=== PATIENT | female | born 1975 | race Two or more races ===

== ENCOUNTER 2019-05-01 16:36 | Inpatient (IN) | payer OTHER ==
[~2019-05-01] VITALS: Ht 160 cm; Wt 68.0 kg
--- NOTE | 2019-05-01 16:41 | NUR ---
PT BIB [facility] WITH A C/O ANXIETY / PANIC ATTACK. PT WAS CLEANING A HOUSE AND THE HOMEOWNER LIGHT A CANDLE AND STARTED SMOKING MARIJUANA. PT WAS HYPERVENTILATING UPON EMS ARRIVAL AND VOMITTED X1. PT REC'D ZOFRAN, NITRO X 1 AND ASPIRIN IN THE FIELD. RESCUE AMBUANCE ARRIVED ON SCENE AND REPEAT EKG WAS DONE AND PT WAS TRANSPORTED TO THE ER. PT HAS A 20G IV IN LT HAND. PT IS AA&O X 4.
[2019-05-01 17:02] LABS: BASOPHILS # (AUTO) 0.1 /CMM (0.0-0.2); EOSINOPHILS % (AUTO) 0.7 % (0.0-6.0); HEMATOCRIT 41 % (33-45); HEMOGLOBIN 13.6 g/dL (11.5-14.8); LYMPHOCYTES # (AUTO) 2.6 /CMM (0.8-4.8); MEAN CORPUSCULAR HGB CONC 33 g/dl (31.0-36.0); MEAN CORPUSCULAR VOLUME 92 fL (82-100); MONOCYTES # (AUTO) 0.6 /CMM (0.1-1.30); NEUTROPHILS # (AUTO) 6.3 /CMM (1.8-8.9); NEUTROPHILS % (AUTO) 65.3 % (43.0-81.0); PLATELET COUNT (AUTO) 231 /CMM (150-450); RED BLOOD CELL COUNT(AUTO) 4.43 MIL/uL (4.0-5.2); WHITE BLOOD COUNT (AUTO) 9.7 K/uL (4.3-11.0)
[2019-05-01 17:09] LABS: CALCIUM, SERUM 8.9 mg/dL (8.5-10.1); CARBON DIOXIDE 24 mmol/L (21-32); CHLORIDE 103 mmol/L (98-107); CREATININE 0.8 mg/dL (0.6-1.3); GLUCOSE 138 mg/dL (74-106); SODIUM SERUM 141 mmol/L (136-145); UREA NITROGEN, BLOOD 23 mg/dL (7-18)
[2019-05-01 17:11] LABS: ABG BASE EXCESS -2.5 mmol/L; ABG OXYGEN SATURATION 98.4 % (92.0-98.5); ABG PCO2 19.3 mmHg (35.0-45.0); ABG PH 7.567 (7.350-7.450); ABG PO2 146.9 mmHg (75.0-100.0); COHb 0.2 % (0.5-1.5); MetHb 0.4 % (0.0-1.5); O2Hb 97.8 % (94.0-97.0); SITE, ABG Right Radial; VENT MODE, BG RA
[2019-05-01 17:15] LABS: ALANINE AMINOTRANSFERASE 21 U/L (12-78); ALBUMIN 3.7 g/dL (3.4-5.0); ALKALINE PHOSPHATASE 127 U/L (46-116); ASPARTATE AMINOTRANSFERASE 18 U/L (15-37); BILIRUBIN,DIRECT 0.1 mg/dL (0.0-0.2); BILIRUBIN,TOTAL 0.3 mg/dL (0.2-1.0); LIPASE 159 U/L (73-393); TOTAL PROTEIN, SERUM 7.6 g/dL (6.4-8.2)
--- NOTE | 2019-05-01 18:00 | NUR ---
PT IS RESTING COMFORTABLY WITH NO S/S OF PAIN OR DISTRESS. VSS.
[2019-05-01] MEDS ORDERED: POTASSIUM CHLORIDE 20 MEQ TAB.PRT.SR PO ONE ×2 (18:30→18:54)
[2019-05-01] MEDS ORDERED: ONDANSETRON HCL/PF 4 MG/2 ML VIAL IV ONE (18:30)
[2019-05-01] MEDS ORDERED: IV NS 0.9% 1,000 ML BAG IV ONE ×2 (18:30)
[2019-05-01] MEDS ORDERED: IV 1/2NS 1000 ML 1,000 ML IV PRN (18:40)
[2019-05-01] MEDS ORDERED: ONDANSETRON HCL/PF 4 MG/2 ML VIAL ONE (18:53)
[2019-05-01] MEDS ORDERED: Z GUARD REMEDY 2 OZ OINT TP PRN (19:00)
[2019-05-01] MEDS ORDERED: HYDROCODONE/APAP 5/325MG 1 EACH TABLET PO PRN (19:00)
[2019-05-01] MEDS ORDERED: ZOLPIDEM TARTRATE 5 MG TABLET PO PRN (19:00)
[2019-05-01] MEDS ORDERED: MAGNESIUM HYDROXIDE 30 ML UDC PO PRN (19:00)
[2019-05-01] MEDS ORDERED: ACETAMINOPHEN 325 MG TABLET PO PRN (19:00)
[2019-05-01] MEDS ORDERED: MAG HYDROX/AL HYDROX/SIMETH 30 ML UDC PO PRN (19:00)
[2019-05-01] MEDS ORDERED: ONDANSETRON HCL/PF 4 MG/2 ML VIAL IVP PRN (19:00)
[2019-05-01 20:20] VITALS: BP 107/64
--- NOTE | 2019-05-01 20:25 | NUR ---
REPORT GIVEN TO DALJIT SEXTON
--- NOTE | 2019-05-01 20:45 | NUR ---
ADMISSION 43 y/o female admitted for possible toxic exposure. A/O x4, skin intact. Instruction to use call light for assistance. Orientation to room, unit, staff.
--- NOTE | 2019-05-01 22:36 | NUR ---
POISON CONTROL INFORMED Called Poison control spoke with Court Worker [id number]. Reported patient current vital signs, Carboxyhemoglobin 0.2, patient asymptomatic, denies nausea no reported vomiting since admitted to the unit. Patient cleared from Poison control per operation [id number].
[2019-05-02] VITALS: BP 93/51
[2019-05-02 04:00] VITALS: BP 97/61
--- NOTE | 2019-05-02 06:42 | NUR ---
END OF SHIFT REPORT Patient in bed, stable Oxygen saturation on RA. IVF maintained, Sinus rhythm in the Tele monitor. Ambulates independently, denies pain. Urine specimen send to lab for test. No c/o nausea or vomiting, denies dizziness, headache. Cleared by Poison control for possible toxic exposure. Plan PT eval. maintained safety.
[2019-05-02] MEDS ORDERED: PANTOPRAZOLE 40 MG TABLET.DR PO SCH (07:30)
[2019-05-02 08:00] VITALS: BP 100/64
[2019-05-02 08:45] LABS: APPEARANCE,URINE CLEAR (CLEAR); BILIRUBIN,URINE NEGATIVE (NEGATIVE); BLOOD, URINE NEGATIVE Ery/uL (NEGATIVE); COLOR,URINE YELLOW (YELLOW); KETONES,URINE NEGATIVE (NEGATIVE); LEUKOCYTE ESTERASE ,URINE NEGATIVE (NEGATIVE); NITRITE, URINE NEGATIVE (NEGATIVE); PROTEIN,URINE NEGATIVE (NEGATIVE); UGLUCOSE NEGATIVE (NEGATIVE); UROBILINOGEN,URINE 0.2 EU/dL (0.2)
[2019-05-02 10:27] LABS: CALCIUM, SERUM 8.4 mg/dL (8.5-10.1); CREATININE 0.7 mg/dL (0.6-1.3); POTASSIUM 3.9 mmol/L (3.5-5.1)
--- NOTE | 2019-05-02 15:10 | NUR ---
PATIENT CLEARED FOR D/C TO HOME BY . MEDICALLY STABLE, DENIES N/V DINGINESS. LACTIC ASID IMPROVED. VS ARE STABLE AND PATIENT ON ROOM AIR. ALL NEEDS ATTENDED.IV LINE REMOVED AND ID WRIST BAND REMOVED. EDUCATION AND RECOMMENDATIONS PROVIDED; PATIENT VERBALIZED UNDERSTANDING. VALUABLE FORM SIGHED AND D/C INSTRUCTIONS SIGNED. PATIENT WILL F/U WITH OB AND PCP IN ONE WEEK.PATIENT AMBULATORY. SAFELY TRANSFERRED TO [facility] VIA WHEELCHAIR ACCOMPANIED BY NURSE AND DAUGHTER
== END 2019-05-02 15:45 | disposition home or self-care (01) | DRG 816 ==
LOC: ER 16:37 → TELE 20:39 → MED 05-02 09:56
PROVIDERS: ADMIT Student in an Organized Health Care Education/Training Program; ATTEND Student in an Organized Health Care Education/Training Program
DX: T59.91XA Toxic effect of unspecified gases, fumes and vapors, accidental (unintentional), initial encounter (principal); E87.2 Acidosis; E87.6 Hypokalemia; Y92.009 Unspecified place in unspecified non-institutional (private) residence as the place of occurrence of the external cause
CPT/HCPCS: 36415; 36600; 80048-TC; 80076-TC; 80305; 81000-TC; 82803-TC; 83605-TC; 83690-TC; 84484-TC; 85025-TC; 87081-TC; G0378; J2405; J3490; J7030